=== PATIENT | female | born 1970 | race Caucasian/White ===

== ENCOUNTER → 2021-05-04 | Outpatient (CLI) | payer OTHER ==
[2021-05-04 15:20] VITALS: BP 181/79; PULSE 88; TEMP 97; BMI 48.4
[2021-05-04 15:44] LABS: HCT 39.6 % (34.0-46.0); HGB 13.2 gm/dL (11.4-16.0); MCH 30.3 pg (25.0-35.0); MCHC 33.4 g/dL (31.0-37.0); MCV 90.7 fL (80.0-100.0); Mean Platelet Volume 6.9; Platelet Count 385 k/uL (150-450); RBC 4.36 m/uL (3.80-5.40); RDW 14.2 % (11.5-15.5); WBC 9.5 k/uL (3.8-10.6)
[2021-05-05 01:23] LABS: African American GFR (CKD) 67.3 (60.0-200.0); Albumin 4.6 g/dL (3.80-4.90); Albumin/Globulin Ratio 1.31 (1.60-3.17); Anion Gap 8.5 mmol/L (4.00-12.00); BUN/Creat Ratio 11.82 Ratio (12.00-20.00); Calcium 10.6 mg/dL (8.7-10.3); Carbon Dioxide 27.5 mmol/L (21.6-31.8); Globulin 3.5 g/dL (1.6-3.3); Non-African American GFR(CKD) 58.1 (60.0-200.0); Potassium 4.2 mmol/L (3.5-5.5); Total Bilirubin 0.3 mg/dL (0.2-1.2); Total Protein 8.1 g/dL (6.2-8.2)
[2021-05-05 01:50] LABS: Folate, Serum 16.9 ng/mL
[2021-05-05 03:28] LABS: Hemoglobin A1C 5.2 % (4.0-6.0)
--- NOTE | 2021-05-12 12:32 | P.HPBAR ---
Bariatric H&P - History & Physicial H&P Date: 05/04/21 History & Physicial: Visit/CC: initial clinic visit Patient initial contact: Initial weight: Initial weight in pounds: Height: 5 ft 4 in Initial BMI: Last weight: Current weight: 127.913 kg Current weight in pounds: 282.00 Current BMI: 48.4 [place] body weight (based on NIH guidelines): 54.431 kg Excess body weight loss: The patient is a 50 year-old F who presents for Bariatric Assessment. Patient presents today for initial visit. She is considering sleeve gastrectomy. She is morbidly obese. Her BMI is 48. Patient has an excellent understanding of the sleeve gastrectomy. She has since the risks and benefits procedure he is also aware the risk of gastric staple line disruption, bleeding and scarring. Past Medical History History of Any Multi-Drug Resistant Organisms: None Reported Smoking Status: Never smoker Surgical - Exam Vital Signs Temp Pulse BP 97 F L 88 181/79 05/04/21 15:14 05/04/21 15:14 05/04/21 15:14 - General well developed, well nourished, no distress - Eyes PERRL - ENT normal pinna - Neck no masses - Respiratory normal expansion - Cardiovascular Rhythm: regular - Abdomen Abdomen: soft, non tender Results - Labs 05/04/21 15:20 05/04/21 15:20 Bariatric Assessment & Plan Plan: Morbid obesity, patient was scheduled for EGD. Bariatric Checklist Checklist: Plan: Checklist: EGD: 1. Hiatal hernia: 2. H. Pylori: HgbA1c: Vitamin D: Smoking: Primary care physician referral: Dr. Martin Psychiatry clearance: Cardiology clearance: Sleep study: Diet journal: VTE risk score: VTE risk level: Rehab needs at discharge:
== END ==
LOC: BARWHC3 14:22
PROVIDERS: ATTEND Surgery
DX: E66.01 Morbid (severe) obesity due to excess calories (principal); Z68.42 Body mass index [BMI] 45.0-49.9, adult
CPT/HCPCS: 84425; 80053; 82607; 82746; 85027; 82306; 83036; 93005; 36415; G0463; 99203

== ENCOUNTER → 2021-05-29 | Day surgery (SDC) | payer OTHER | END | disposition home or self-care (01) | CPT/HCPCS: 81025; 88305; 43239; J2704 ==

== ENCOUNTER → 2021-06-15 | Outpatient (CLI) | payer OTHER ==
[2021-06-15 14:36] VITALS: BP 153/101; PULSE 86; RESP 16; TEMP 98.3; BMI 48.5
--- NOTE | 2021-06-15 15:54 | P.HPBAR ---
Bariatric H&P - History & Physicial H&P Date: 06/15/21 History & Physicial: Visit/CC: EGD F/U Patient initial contact: Initial weight: 128.367 kg Initial weight in pounds: 283.00 Height: 5 ft 4 in Initial BMI: 48.5 Last weight: Current weight: 128.367 kg Current weight in pounds: 283.00 Current BMI: 48.5 [place] body weight (based on NIH guidelines): 54.431 kg Excess body weight loss: 0.0% The patient is a 50 year-old F who presents for Bariatric Assessment. Patient presents today for patient consultation. She is asleep EGD. He is morbidly obese. Her BMI is 49 Past Medical History Past Medical History: Hypertension History of Any Multi-Drug Resistant Organisms: None Reported Past Surgical History: Orthopedic Surgery Additional Past Surgical History / Comment(s): SX FOR BROKEN RT ARM Past Anesthesia/Blood Transfusion Reactions: No Reported Reaction Past Psychological History: No Psychological Hx Reported Smoking Status: Never smoker Past Alcohol Use History: None Reported Past Drug Use History: None Reported - Past Family History Mother Family Medical History: Cancer Surgical - Exam Vital Signs Temp Pulse Resp BP 98.3 F 86 16 153/101 06/15/21 14:33 06/15/21 14:33 06/15/21 14:33 06/15/21 14:33 - General well developed, well nourished, no distress - Eyes PERRL - ENT normal pinna - Neck no masses - Respiratory normal expansion - Cardiovascular Rhythm: regular - Abdomen Abdomen: soft, non tender Bariatric Assessment & Plan Plan: RBC. Patient will follow-up in 2 months. She has an excellent understanding of sleeve gastrectomy. Bariatric Checklist Checklist: Plan: Checklist: EGD: 1. Hiatal hernia: 2. H. Pylori: HgbA1c: Vitamin D: Smoking: Primary care physician referral: Dr. Martin Psychiatry clearance: Cardiology clearance: Sleep study: Diet journal: VTE risk score: VTE risk level: Rehab needs at discharge:
== END ==
LOC: BARWHC3 13:48
PROVIDERS: ATTEND Surgery
DX: E66.01 Morbid (severe) obesity due to excess calories (principal); I10 Essential (primary) hypertension; Z68.42 Body mass index [BMI] 45.0-49.9, adult
CPT/HCPCS: 99211

== ENCOUNTER → 2021-07-13 | Outpatient (CLI) | payer OTHER ==
[2021-07-13 15:27] VITALS: BP 145/81; PULSE 93; RESP 18; TEMP 98.4; BMI 49.2
--- NOTE | 2021-07-13 15:46 | P.HPBAR ---
Bariatric H&P - History & Physicial H&P Date: 07/13/21 History & Physicial: Visit/CC: follow up / SWL #3 Patient initial contact: Initial weight: 128.367 kg Initial weight in pounds: 283.00 Height: 5 ft 4 in Initial BMI: 48.5 Last weight: Current weight: 130.181 kg Current weight in pounds: 287.00 Current BMI: 49.2 [place] body weight (based on NIH guidelines): 54.431 kg Excess body weight loss: The patient is a 51 year-old F who presents for Bariatric Assessment. Patient presents today for presurgical consultation. She is undergoing her monthly weight visits. Her BMI is 49 Past Medical History Past Medical History: Hypertension History of Any Multi-Drug Resistant Organisms: None Reported Past Surgical History: Orthopedic Surgery Additional Past Surgical History / Comment(s): SX FOR BROKEN RT ARM Past Anesthesia/Blood Transfusion Reactions: No Reported Reaction Past Psychological History: No Psychological Hx Reported Smoking Status: Never smoker Past Alcohol Use History: None Reported Past Drug Use History: None Reported - Past Family History Mother Family Medical History: Cancer Surgical - Exam Vital Signs Temp Pulse Resp BP 98.4 F 93 18 145/81 07/13/21 15:12 07/13/21 15:12 07/13/21 15:12 07/13/21 15:12 - General well developed, well nourished, no distress - Eyes PERRL - ENT normal pinna - Neck no masses - Respiratory normal expansion - Cardiovascular Rhythm: regular - Abdomen Abdomen: soft, non tender Bariatric Assessment & Plan Plan: Morbid obesity. Patient has provided. She'll follow-up. Bariatric Checklist Checklist: Plan: Checklist: EGD: 1. Hiatal hernia: 2. H. Pylori: HgbA1c: Vitamin D: Smoking: Primary care physician referral: Dr. Martin Psychiatry clearance: Cardiology clearance: Sleep study: Diet journal: VTE risk score: VTE risk level: Rehab needs at discharge:
== END ==
LOC: BARWHC3 14:41
PROVIDERS: ATTEND Surgery
DX: Z01.818 Encounter for other preprocedural examination (principal); E66.01 Morbid (severe) obesity due to excess calories; I10 Essential (primary) hypertension; Z68.42 Body mass index [BMI] 45.0-49.9, adult
CPT/HCPCS: 99211

== ENCOUNTER → 2021-08-10 | Outpatient (CLI) | payer OTHER ==
[2021-08-10 14:21] VITALS: PULSE 78; RESP 18; TEMP 98.1; BMI 48.4
[2021-08-10 14:24] VITALS: BP 158/101
--- NOTE | 2021-08-25 10:54 | P.HPBAR ---
Bariatric H&P - History & Physicial H&P Date: 08/10/21 History & Physicial: Visit/CC: follow up / SWL Patient initial contact: Initial weight: 128.367 kg Initial weight in pounds: 283.00 Height: 5 ft 4 in Initial BMI: 48.5 Last weight: Current weight: 127.913 kg Current weight in pounds: 282.00 Current BMI: 48.4 [place] body weight (based on NIH guidelines): 54.431 kg Excess body weight loss: 0.6% The patient is a 51 year-old F who presents for Bariatric Assessment. Patient presents today for bariatric follow-up. She just underwent her EGD. She's morbid obesity. Her BMI is 48. Past Medical History Past Medical History: Hypertension History of Any Multi-Drug Resistant Organisms: None Reported Past Surgical History: Orthopedic Surgery Additional Past Surgical History / Comment(s): SX FOR BROKEN RT ARM Past Anesthesia/Blood Transfusion Reactions: No Reported Reaction Past Psychological History: No Psychological Hx Reported Smoking Status: Never smoker Past Alcohol Use History: None Reported Past Drug Use History: None Reported - Past Family History Mother Family Medical History: Cancer Surgical - Exam Vital Signs Temp Pulse Resp BP 98.1 F 78 18 158/101 08/10/21 14:14 08/10/21 14:14 08/10/21 14:14 08/10/21 14:14 - General well developed, well nourished, no distress - Eyes PERRL - ENT normal pinna - Neck no masses - Respiratory normal expansion - Cardiovascular Rhythm: regular - Abdomen Abdomen: soft, non tender Bariatric Assessment & Plan Plan: Morbid obesity. BMI 48. Patient will be scheduled for sleeve gastrectomy. Bariatric Checklist Checklist: Plan: Checklist: EGD: 1. Hiatal hernia: 2. H. Pylori: HgbA1c: Vitamin D: Smoking: Primary care physician referral: Dr. Martin Psychiatry clearance: Cardiology clearance: Sleep study: Diet journal: VTE risk score: VTE risk level: Rehab needs at discharge:
== END ==
LOC: BARWHC3 13:30
PROVIDERS: ATTEND Surgery
DX: E66.01 Morbid (severe) obesity due to excess calories (principal); I10 Essential (primary) hypertension; Z68.42 Body mass index [BMI] 45.0-49.9, adult
CPT/HCPCS: 99211

== ENCOUNTER → 2021-08-17 | Outpatient (CLI) | payer OTHER ==
[2021-08-17 13:09] VITALS: BMI 49.0
== END ==
LOC: BARWHC3 08:34
PROVIDERS: ATTEND Surgery
DX: E66.01 Morbid (severe) obesity due to excess calories (principal); Z71.3 Dietary counseling and surveillance; Z68.42 Body mass index [BMI] 45.0-49.9, adult
CPT/HCPCS: 97804

== ENCOUNTER → 2021-09-07 | Outpatient (CLI) | payer OTHER ==
[2021-09-07 13:48] VITALS: BP 155/82; PULSE 98; TEMP 98.2; BMI 48.4
--- NOTE | 2021-09-14 16:58 | P.HPBAR ---
Bariatric H&P - History & Physicial H&P Date: 09/07/21 History & Physicial: Visit/CC: swl visit Patient initial contact: Initial weight: 128.367 kg Initial weight in pounds: 283.00 Height: 5 ft 4 in Initial BMI: 48.5 Last weight: Current weight: 127.913 kg Current weight in pounds: 282.00 Current BMI: 48.4 [place] body weight (based on NIH guidelines): 54.431 kg Excess body weight loss: 0.6% The patient is a 51 year-old F who presents for Bariatric Assessment. Patient presents today for presurgical consultation. She is morbidly obese. Her BMI is 48. She has been undergoing her supervised weight loss visit Past Medical History Past Medical History: Hypertension History of Any Multi-Drug Resistant Organisms: None Reported Past Surgical History: Orthopedic Surgery Additional Past Surgical History / Comment(s): SX FOR BROKEN RT ARM Past Anesthesia/Blood Transfusion Reactions: No Reported Reaction Past Psychological History: No Psychological Hx Reported Smoking Status: Never smoker Past Alcohol Use History: None Reported Past Drug Use History: None Reported - Past Family History Mother Family Medical History: Cancer Surgical - Exam Vital Signs Temp Pulse BP 98.2 F 98 155/82 09/07/21 13:46 09/07/21 13:46 09/07/21 13:46 - General well developed, well nourished, no distress - Eyes PERRL - ENT normal pinna - Neck no masses - Respiratory normal expansion - Cardiovascular Rhythm: regular - Abdomen Abdomen: soft, non tender Bariatric Assessment & Plan Plan: Morbid obesity, BMI 48. Patient will follow-up in one month. Bariatric Checklist Checklist: Plan: Checklist: EGD: 1. Hiatal hernia: 2. H. Pylori: HgbA1c: Vitamin D: Smoking: Primary care physician referral: Dr. Martin Psychiatry clearance: Cardiology clearance: Sleep study: Diet journal: VTE risk score: VTE risk level: Rehab needs at discharge:
== END ==
LOC: BARWHC3 13:20
PROVIDERS: ATTEND Surgery
DX: E66.01 Morbid (severe) obesity due to excess calories (principal); Z68.42 Body mass index [BMI] 45.0-49.9, adult; I10 Essential (primary) hypertension
CPT/HCPCS: 99211

== ENCOUNTER → 2021-09-28 | Outpatient (CLI) | payer OTHER ==
[2021-09-28 13:31] VITALS: BP 161/98; PULSE 68; TEMP 98.2; BMI 48.7
--- NOTE | 2021-10-08 19:57 | P.HPBAR ---
Bariatric H&P - History & Physicial H&P Date: 09/28/21 History & Physicial: Visit/CC: presurgical visit Patient initial contact: Initial weight: 128.367 kg Initial weight in pounds: 283.00 Height: 5 ft 4 in Initial BMI: 48.5 Last weight: Current weight: 128.82 kg Current weight in pounds: 284.00 Current BMI: 48.7 [place] body weight (based on NIH guidelines): 54.431 kg Excess body weight loss: The patient is a 51 year-old F who presents for Bariatric Assessment. Patient presents today for presurgical consultation. She is interested in sleeve gastrectomy. She is morbidly obese. Her BMI is 49. Past Medical History Past Medical History: Hypertension History of Any Multi-Drug Resistant Organisms: None Reported Past Surgical History: Orthopedic Surgery Additional Past Surgical History / Comment(s): SX FOR BROKEN RT ARM Past Anesthesia/Blood Transfusion Reactions: No Reported Reaction Smoking Status: Never smoker - Past Family History Mother Family Medical History: Cancer Surgical - Exam Vital Signs Temp Pulse BP 98.2 F 68 161/98 09/28/21 13:28 09/28/21 13:28 09/28/21 13:28 - General well developed, well nourished, no distress - Eyes PERRL - ENT normal pinna - Neck no masses - Respiratory normal expansion - Cardiovascular Rhythm: regular - Abdomen Abdomen: soft, non tender Bariatric Assessment & Plan Plan: Morbid obesity. BMI 49. Patient was scheduled for EGD. Bariatric Checklist Checklist: Plan: Checklist: EGD: 1. Hiatal hernia: 2. H. Pylori: HgbA1c: Vitamin D: Smoking: Primary care physician referral: Dr. Martin Psychiatry clearance: Cardiology clearance: Sleep study: Diet journal: VTE risk score: VTE risk level: Rehab needs at discharge:
== END ==
LOC: BARWHC3 12:25
PROVIDERS: ATTEND Surgery
DX: E66.01 Morbid (severe) obesity due to excess calories (principal); I10 Essential (primary) hypertension; Z68.42 Body mass index [BMI] 45.0-49.9, adult
CPT/HCPCS: 99211

== ENCOUNTER → 2021-11-02 | Outpatient (CLI) | payer OTHER ==
[2021-11-02 13:42] VITALS: BP 158/108; PULSE 76; RESP 18; TEMP 98.4; BMI 48.5
--- NOTE | 2021-11-02 16:21 | P.HPBAR ---
Bariatric H&P - History & Physicial H&P Date: 11/02/21 History & Physicial: Visit/CC: follow up Patient initial contact: Initial weight: 128.367 kg Initial weight in pounds: 283.00 Height: 5 ft 4 in Initial BMI: 48.5 Last weight: Current weight: 128.367 kg Current weight in pounds: 283.00 Current BMI: 48.5 [place] body weight (based on NIH guidelines): 54.431 kg Excess body weight loss: 0.0% The patient is a 51 year-old F who presents for Bariatric Assessment. Patient presents today for bariatric follow-up. She is morbidly obese. Her BMI is 49.. She is ready to be scheduled for surgery. Her doctor dictation will be sent for insurance authorization. She has no further questions about the gastric sleeve procedure. We discussed his multiple times. Past Medical History Past Medical History: Hypertension History of Any Multi-Drug Resistant Organisms: None Reported Past Surgical History: Orthopedic Surgery Additional Past Surgical History / Comment(s): SX FOR BROKEN RT ARM Past Anesthesia/Blood Transfusion Reactions: No Reported Reaction Past Psychological History: No Psychological Hx Reported Smoking Status: Never smoker Past Alcohol Use History: None Reported Past Drug Use History: None Reported - Past Family History Mother Family Medical History: Cancer Surgical - Exam Vital Signs Temp Pulse Resp BP 98.4 F 76 18 158/108 11/02/21 13:39 11/02/21 13:39 11/02/21 13:39 11/02/21 13:39 - General well developed, well nourished, no distress - Eyes PERRL - ENT normal pinna - Neck no masses - Respiratory normal expansion - Cardiovascular Rhythm: regular - Abdomen Abdomen: soft, non tender Bariatric Assessment & Plan Plan: Morbid obesity. BMI 49. Patient will be scheduled for sleeve gastrectomy. Bariatric Checklist Checklist: Plan: Checklist: EGD: 1. Hiatal hernia: 2. H. Pylori: HgbA1c: Vitamin D: Smoking: Primary care physician referral: Dr. Martin Psychiatry clearance: Cardiology clearance: Sleep study: Diet journal: VTE risk score: VTE risk level: Rehab needs at discharge:
== END ==
LOC: BARWHC3 12:28
PROVIDERS: ATTEND Surgery
DX: E66.01 Morbid (severe) obesity due to excess calories (principal); I10 Essential (primary) hypertension; Z68.42 Body mass index [BMI] 45.0-49.9, adult
CPT/HCPCS: 99211

== ENCOUNTER → 2022-01-07 | Outpatient (CLI) | payer OTHER ==
[2022-01-07 18:22] LABS: HCT 39.6 % (37.2-46.3); HGB 12.4 g/dL (12.0-15.0); MCHC 31.3 g/dL (32.0-37.0); MCV 92.7 fL (80.0-97.0); Mean Platelet Volume 9.7 fL (9.5-12.2); NRBC Per 100 WBC 0 /100 WBCS (0.0-0.0); Platelet Count 403 X 10*3/uL (140-440); RBC 4.27 X 10*6/uL (4.10-5.20); RDW 14.1 % (11.5-14.5); WBC 5.42 X 10*3/uL (4.50-10.00)
[2022-01-07 18:38] LABS: ALT 18 U/L (8-44); AST 21 U/L (13-35); African American GFR (CKD) 80.3 (60.0-200.0); Albumin 4.2 g/dL (3.8-4.9); Albumin/Globulin Ratio 1.09 (1.60-3.17); Alkaline Phosphatase 107 U/L (41-126); BUN/Creat Ratio 13.12 Ratio (12.00-20.00); Blood Urea Nitrogen 12.4 mg/dL (9.0-27.0); Calcium 9.5 mg/dL (8.7-10.3); Carbon Dioxide 24.4 mmol/L (20.0-27.5); Chloride 102 mmol/L (96-109); Chol/HDL Ratio 4.13 Ratio; Globulin 3.8 g/dL (1.6-3.3); Glucose 97 mg/dL (70-110); LDL Cholesterol,Calculated 142.7 mg/dL (0.0-131.0); Non-African American GFR(CKD) 69.3 (60.0-200.0); Potassium 4.3 mmol/L (3.5-5.5); Sodium 137 mmol/L (135-145); Total Protein 7.9 g/dL (6.2-8.2)
== END | disposition home or self-care (01) ==
LOC: LABWHC1 12:05
PROVIDERS: ATTEND Neuromusculoskeletal Medicine & OMM
DX: Z00.00 Encounter for general adult medical examination without abnormal findings (principal)
CPT/HCPCS: 36415; 80053; 80061; 85027

== ENCOUNTER → 2022-01-21 | Outpatient (CLI) | payer OTHER ==
--- NOTE | 2022-01-22 12:22 | MM ---
Reason for exam: screening (asymptomatic). Baseline mammogram. History: Patient is postmenopausal. Physical Findings: A clinical breast exam by your physician is recommended on an annual basis and results should be correlated with mammographic findings. MG Screening Mammo w CAD Bilateral CC and MLO view(s) were taken. The breast tissue is heterogeneously dense. This may lower the sensitivity of mammography. Focal asymmetry upper outer right breast zone B. ASSESSMENT: Incomplete: need additional imaging evaluation, BI-RAD 0 RECOMMENDATION: Special view mammogram of the right breast. If lesion persists on supplemental views, image directed ultrasound is recommended. [facility] will attempt to contact patient to return for supplemental views and ultrasound if indicated.
== END | disposition home or self-care (01) ==
LOC: RADMAMWWP 10:38
PROVIDERS: ATTEND Neuromusculoskeletal Medicine & OMM
DX: Z12.31 Encounter for screening mammogram for malignant neoplasm of breast (principal); Z78.0 Asymptomatic menopausal state
CPT/HCPCS: 77067

== ENCOUNTER → 2022-01-27 | Outpatient (CLI) | payer OTHER ==
--- NOTE | 2022-01-27 07:58 | MM ---
Reason for exam: additional evaluation requested from abnormal screening. Last mammogram was performed less than 1 month ago. History: Patient is postmenopausal. Physical Findings: A clinical breast exam by your physician is recommended on an annual basis and results should be correlated with mammographic findings. MG Work Up Mamm w CAD RT Spot compression CC, spot compression MLO, and LM view(s) were taken of the right breast. Prior study comparison: January 21, 2022, bilateral MG screening mammo w CAD. The breast tissue is heterogeneously dense. This may lower the sensitivity of mammography. Density persists although improved. These results were verbally communicated with the patient and result sheet given to the patient on 01/27/22. ASSESSMENT: Probably benign, BI-RAD 3 RECOMMENDATION: Follow-up diagnostic mammogram of the right breast in 6 months.
== END | disposition home or self-care (01) ==
LOC: RADMAMWWP 07:28
DX: R92.8 Other abnormal and inconclusive findings on diagnostic imaging of breast (principal); Z78.0 Asymptomatic menopausal state
CPT/HCPCS: 77065

== ENCOUNTER → 2024-01-09 | Outpatient (CLI) | payer OTHER ==
--- NOTE | 2024-01-09 09:03 | MM ---
Reason for Exam: Screening (asymptomatic). Last mammogram was performed 2 year(s) and 0 month(s) ago. Patient History: Menarche at age 12. First Full-Term at age 23. Postmenopausal. Risk Values: Aracely 5 year model risk: 1.0%. NCI Lifetime model risk: 7.5%. Prior Study Comparison: 01/21/2022 Bilateral Screening Mammogram, [facility]. 01/27/2022 Right Diagnostic Mammogram, [facility]. Tissue Density: There are scattered fibroglandular densities. Findings: Analyzed By CAD. There is no suspicious group of microcalcifications or new suspicious mass. Overall Assessment: Negative, BI-RAD 1 Management: Screening Mammogram of both breasts in [address] [facility] will attempt to contact patient to return for supplemental views and ultrasound if indicated. Patient should continue monthly self-breast exams. A clinical breast exam by your physician is recommended on an annual basis. This exam should not preclude additional follow-up of suspicious palpable abnormalities. Note on Aracely scores and lifetime risk: 1. A Aracely score greater than 3% is considered moderate risk. If this is the case, consider specialist referral to assess eligibility for a risk reducing agent. 2. If overall lifetime risk for the development of breast cancer is 20% or higher, the patient may qualify for future screening with alternating mammogram and breast MRI. Electronically signed and approved by: Humble Rob DO
--- NOTE | 2024-01-09 11:31 | CA ---
Exercise Stress Test Report Name: Marcie Parson Exam Date: 01/09/2024 09:10 Exam Location: [facility] Ht (in): 65 Wt (lb): 233 BSA: 2.11 Ordering Phys: Nick Berkowitz MD Referring Phys: Su Beltran PAC Technologist: Tereso Larson Age: 53 Gender: F : 1970 Procedure CPT: Indications: Z82.49 FAMILY HISTORY OF ISCHEMIC HEART DISEASE ICD-10 Codes: Patient History: Medications: losartan, hydrochlorothiazide, celecoxib Meds past 24 hrs: Pretest Chest Pain: STRESS TEST Baljit Protocol Exercise Duration (min:sec): 06:[address] Depressions (mm): Angina Score: Barrow Score: Resting HR (bpm): 84 Peak HR (bpm): 171 Resting BP (mmHg): 151 / 97 Peak BP (mmHg): 217 / 91 MPHR: 166 Target HR: 141 % MPHR: 103 METS: 7.1 Total Dose: Peak Dose: Atropine: Double Product: 98282 BP Response: Stress Termination: Reached target heart rate Stress Symptoms: No chest pain or symptoms Stress Summary: ECG ANALYSIS Resting ECG: Stress ECG: CONCLUSIONS Patient underwent exercise stress EKG with a Baljit protocol treadmill stress test. Patient exercised into Stage 2 for a total of 6 minutes reaching a total of 7.1 METS. Patient's maximum heart rate was 171 which represented 100% age-predicted maximum heart rate. Stress EKG findings: At baseline patient's EKG showed normal sinus rhythm, normal axis, no significant ST or T wave abnormalities. At peak exercise, EKG showed no significant change from baseline. Conclusions: 1. Normal EKG response to exercise without evidence of inducible ischemia. 2. Fair exercise capacity. Dr. Owen Abernathy DO (Electronically Signed) Final Date: 09 January 2024 11:30
== END | disposition home or self-care (01) ==
LOC: RADMAMWWP 07:49
PROVIDERS: ATTEND Family Medicine
DX: Z12.31 Encounter for screening mammogram for malignant neoplasm of breast (principal); Z78.0 Asymptomatic menopausal state; Z82.49 Family history of ischemic heart disease and other diseases of the circulatory system
CPT/HCPCS: 77063; 77067; 93017